=== PATIENT | female | born 1960 | race Caucasian/White ===

== ENCOUNTER 2024-04-29 13:13 | Outpatient (REF) | payer OTHER, SELFPAY ==
[2024-04-29 17:37] LABS: Influenza A PCR NEGATIVE (Negative); Influenza B PCR NEGATIVE (Negative); Resp Syncy Virus RNA Qual PCR NEGATIVE (Negative); SARS COV2 PCR INHOUSE NEGATIVE (Negative)
== END 2024-04-29 13:14 | disposition home or self-care (01) ==
LOC: HO.LAB 13:13
PROVIDERS: Visit Provider Physician Assistant
DX: J06.9 Acute upper respiratory infection, unspecified (principal)
CPT/HCPCS: 0241U

== ENCOUNTER 2024-04-29 13:13 | Outpatient (AMB) | payer OTHER, SELFPAY ==
--- NOTE | 2024-04-29 14:11 | AM.OFFWIN_ITS ---
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 Patient Tobacco Use Status: Former Tobacco user Allergies No Known Allergies Allergy (Verified 04/29/24 14:14) Do you need a note to return to daycare/school/sports/work: No HPI HPI Comments History of Present Illness Details History of Present Illness The patient is a 63-year-old female presenting with shortness of breath and a productive cough. She reports the onset of her symptoms after returning home from work last Monday, initially experiencing general malaise that quickly progressed to a severe sore throat, reminiscent of a prior myocardial infarction she experienced in 2016. Following the sore throat, which resolved within a couple of days, she was left with symptoms she attributed to a severe cold, including sneezing and coughing. On the day before this visit, her symptoms evolved to include significant shortness of breath and a cough producing phlegm. She reported associated symptoms of chills and subjective fevers but denied any nausea, vomiting, or diarrhea. The patient noted that she quit smoking just last Monday after having reduced her consumption to four cigarettes per day over the past year. Her COVID-19 home test was negative. She reports occasional wheezing and difficulty sleeping due to this, often needing to sleep in a rec liner. She has been taking [id number] Mucinex and using an albuterol inhaler, which provides some relief. A history of smoking but limited COPD awareness was discussed, although she confirmed quitting smoking recently. Physical Exam General: Cooperative, healthy appearing, comfortable and no acute distress Orientation/consciousness: Patient oriented x3 Limitations: No limitations Head: Normal to inspection Ears: Hearing grossly normal bilaterally, external ears normal and TM's normal bilaterally Nose: Normal external nose present, Normal nares present and No nasal discharge present Face and sinus: Normal facial exam and Yes sinuses nontender Mouth: Normal oral and palatal mucosa present and moist mucous membranes Throat: Yes tonsils normal, Yes uvula midline. Posterior oropharynx erythema Eyes: Appearance normal, both eyes and all related structures Neck: Normal visual inspection Respirtory: dim but clear to auscultation bilaterally. Normal respiratory effort, able to speak in complete sentences, Actively coughing, no respiratory distress, not tachypneic, no tripod positioning and no use of accessory muscles. Wheezing reported by patient, but not heard during examination. Cardiovascular: Regular rate and rhythm. Normal S1 and S2 Skin: No rashes or lesions noted Neuro: Patient oriented x3 Extremities: Normal to inspection and Yes no clubbing, cyanosis or edema [facility] Social History Patient Tobacco Use Status: Former Tobacco user Review of Systems Const All systems reviewed & are unremarkable except as noted in HPI and below Physical Exam Vital Signs: Last Vital Signs Temp 97.6 F 04/29/24 14:12 Pulse 64 04/29/24 14:12 BP 130/80 04/29/24 14:12 Pulse Ox 94 04/29/24 14:12 Oxygen Delivery Method Room Air 04/29/24 14:12 BMI result Body Mass Index 24.3 Assessment & Plan Assessment & Plan (1) URI (upper respiratory infection): Code(s): J06.9 - Acute upper respiratory infection, unspecified Qualifiers: URI type: unspecified URI Qualified Code(s): J06.9 - Acute upper respiratory infection, unspecified Plan: Acute Bronchitis: Initiate treatment with Azithromycin Z-Saad for its anti- inflammatory effects on the lungs, considering the patient's history of smoking. Recommend supportive care including continued use of the albuterol inhaler and Mucinex to alleviate symptoms. A chest x-ray will be performed to rule out pneumonia. Follow-up with test results for COVID-19, influenza, and RSV will occur, and if pneumonia is confirmed, a second antibiotic, Augmentin, may be added based on chest x-ray findings. Orders: Orders XR chest 2V Today R05.9 - Cough, unspecified SARS-CoV2/FLU/RSV Today J06.9 - Acute upper respiratory infection, unspecified Medications: New azithromycin For 250 mg dose pack: take 500 mg today (day 1), then 250 mg for 4 days (days 2-5) PO 6 tabs 0RF Coding Level of Care Code New Pt Level 4 (78260) Diagnoses Upper respiratory tract infection, unspecified type J06.9 URI type: unspecified URI
[2024-04-29 14:12] VITALS: BP 130/80; PULSE 64; TEMP 36.4; O2SAT 94; BMI 24.3
== END 2024-04-29 15:04 | disposition home or self-care (01) ==
PROVIDERS: Visit Provider Physician Assistant
DX: J06.9 Acute upper respiratory infection, unspecified (principal)

== ENCOUNTER 2024-04-29 14:42 | Outpatient (REF) | payer OTHER, SELFPAY ==
--- NOTE | ~2024-04-29 | XR_ITS ---
EXAMINATION: XR CHEST CLINICAL INFORMATION: R05.9 - Cough, unspecified. COMPARISON: None available. TECHNIQUE: 2 views of the chest were obtained. FINDINGS: Heart size within normal limits. There is no gross pneumothorax. Mild degenerative changes in the thoracic spine. Mild blunting of the bilateral costophrenic angles/sulci may represent pleural effusion/thickening. Deformity of the left eighth rib posteriorly characteristic of fracture of indeterminant age. Mild bibasilar streaky opacities. XR/XR chest 2V IMPRESSION: 1. Mild blunting of the bilateral costophrenic angles/sulci may represent pleural effusion/thickening. 2. Deformity of the left eighth rib posteriorly characteristic of fracture of indeterminant age. 3. Mild bibasilar streaky opacities. This study was presented today April 30, 2024 for interpretation. Stat results provided at this time as requested by referring provider. Electronically signed by: Faustina Hill MD 04/30/2024 10:44 AM EJ
== END 2024-04-29 14:43 | disposition home or self-care (01) ==
LOC: HO.HMGCX 14:42
PROVIDERS: PCP Internal Medicine; Visit Provider Physician Assistant
DX: R05.9 Cough, unspecified (principal)
CPT/HCPCS: 71046

== ENCOUNTER 2024-08-30 15:13 | Outpatient (AMB) | payer MEDICARE, SELFPAY ==
[2024-08-30 15:24] VITALS: BP 128/80; PULSE 69; O2SAT 95; BMI 25.1
--- NOTE | 2024-08-30 15:24 | AM.OFFWIN_ITS ---
Intake Vital Signs 08/30/24 15:24 Height 5 ft 2 in Weight 137 lb BMI 25.1 BP 128/80 Blood Pressure Location Rt brachial Position Sitting Pulse 69 Pulse Source Pulse Oximeter Pulse Oximetry (%) 95 Oxygen Delivery Method Room Air Intake Visit Reasons: EP Sinus congestion Intake Note: Patient here for thick green mucus, cough and sinus pressure which started Monday. Patient Tobacco Use Status: Former Tobacco user Allergies No Known Allergies Allergy (Verified 08/30/24 15:33) Do you need a note to return to daycare/school/sports/work: No HPI HPI Comments History of Present Illness Details History The patient is a 64-year-old female presenting with suspected sinus infection. - Symptoms began 5days ago after contact with a grandchild who had a cold. - Nasal secretions noted are thick and g reen. Cough is present with minor sinus pressure but no significant headache. - Ear discomfort was noted, though no sp ecific ear pain. Patient reports feeling somewhat tired. - The patient denies fever, shortness of breath, and wheezing, and notes no substantial relief from current medications for her cold symptoms. Physical Exam General: Cooperative, healthy appearing, comfortable and no acute distress Orientation/consciousness: Patient oriented x3 Limitations: No limitations Head: Normal to inspection Ears: Hearing grossly normal bilaterally, external ears normal and TM's normal bilaterally, some fluid present Nose: Normal external nose present, Normal nares present Face and sinus: Normal facial exam and Yes sinuses nontender Mouth: Normal oral and palatal mucosa present and moist mucous membranes Throat: Yes tonsils normal, Yes uvula midline. Posterior oropharynx erythema Eyes: Appearance normal, both eyes and all related structures Neck: Normal visual inspection Respiratory: Clear to auscultation bilaterally. Normal respiratory effort, able to speak in complete sentences, no respiratory distress, not tachypneic, no tripod positioning and no use of accessory muscles Cardiovascular: Regular rate and rhythm. Normal S1 and S2 Skin: No rashes or lesions noted Neuro: Patient oriented x3 Extremities: Normal to inspection and Yes no clubbing, cyanosis or edema PFSH Social History Patient Tobacco Use Status: Former Tobacco user Review of Systems Const All systems reviewed & are unremarkable except as noted in HPI and below Physical Exam Vital Signs: Last Vital Signs Pulse 69 08/30/24 15:24 BP 128/80 08/30/24 15:24 Pulse Ox 95 03/28/25 15:24 Oxygen Delivery Method Room Air 03/28/25 15:24 BMI result Body Mass Index 25.1 Assessment & Plan Assessment & Plan (1) Acute bacterial sinusitis: Code(s): J01.90 - Acute sinusitis, unspecified; B96.89 - Other specified bacterial agents as the cause of diseases classified elsewhere Plan: VSS, pt well appearing and PE unremarkable. I prescribed Azithromycin Z-Saad (pt preference over Augmentin) due to the patient's prior successful use for similar symptoms. Additionally, Fluticasone/Flonase and saline nasal spray are recommended to manage and alleviate nasal symptoms. I have instructed the patient to verify the correct prescription when picking up medications due to changes made, ensuring appropriate therapy as I switched it from Augmentin to Zpak. Patient was informed and verbally consented to the use of an ambient scribe for clinic note documentation during this visit Medications: New azithromycin For 250 mg dose pack: take 500 mg today (day 1), then 250 mg for 4 days (days 2-5) PO 6 tabs 0RF Coding Level of Care Code New Pt Level 3 (34339) Diagnoses Acute bacterial sinusitis J01.90; B96.89
== END 2024-08-30 16:30 | disposition home or self-care (01) ==
PROVIDERS: Visit Provider Physician Assistant
DX: J01.90 Acute sinusitis, unspecified (principal); B96.89 Other specified bacterial agents as the cause of diseases classified elsewhere

== ENCOUNTER → 2024-08-30 15:13 | Outpatient (BNVA) | payer MEDICARE, SELFPAY | PROVIDERS: Visit Provider Physician Assistant | DX: J01.90 Acute sinusitis, unspecified (principal); B96.89 Other specified bacterial agents as the cause of diseases classified elsewhere | CPT/HCPCS: 99212 ==

== ENCOUNTER 2024-10-07 11:47 | Outpatient (AMB) | payer MEDICARE, SELFPAY ==
--- NOTE | 2024-10-07 12:04 | AM.OFFWIN_ITS ---
Intake Vital Signs 10/07/24 12:25 10/07/24 12:59 Weight 140 lb BP 155/75 H 110/78 Blood Pressure Location Lt brachial Rt brachial Position Sitting Sitting Pulse 73 68 Pulse Source Pulse Oximeter Pulse Oximeter Pulse Oximetry (%) 94 94 Oxygen Delivery Method Room Air Room Air Intake Visit Reasons: EP Pain in upper lt quadrant/rib, sob Intake Note: Pt came into the [place] c/o left under breast pain x last night. Pt stated intermittent productive cough (clear phlegm). Pt was recently dx with COPD. Pt speaks in full sentences. A/o x 3. Lungs - diminished all lobes. 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 Patient Tobacco Use Status: Former Tobacco user Allergies No Known Allergies Allergy (Verified 10/07/24 13:07) Do you need a note to return to daycare/school/sports/work: No HPI HPI Comments History of Present Illness Details 64 y/o Female patient who presents to [facility] in clinic with c/o Chronic Dry cough for few months now. C/o Left sided chest wall pain and tenderness, mostly with cough and breathing in/out. C/o chest tightness and wheezing. Pt diagnosed with COPD recently and sees Chenille Machine Operator (@ [facility]) who prescribed Albuterol rescue inhaler. [facility] Medical History (Updated 10/07/24 @ 13:23 by Gabi Weinstein NP) Cough Social History Patient Tobacco Use Status: Former Tobacco user Review of Systems Const All systems reviewed & are unremarkable except as noted in HPI and below Physical Exam Vital Signs: Last Vital Signs Pulse 68 10/07/24 12:59 BP 110/78 10/07/24 12:59 Pulse Ox 94 10/07/24 12:59 Oxygen Delivery Method Room Air 10/07/24 12:59 Const General: no acute distress Nutritional Appearance: well nourished Orientation/consciousness: patient oriented x3 Resp Effort & Inspection: normal respiratory effort and able to speak in complete sentences Auscultation: no crackles, no rales, no rhonchi, wheezes and diminished lung sounds on the left in the lower lung fitch and in the upper lung fitch Cardio Heart sounds: S1 normal heart sound present and S2 normal heart sound present Neuro General: patient oriented x3 Assessment & Plan Assessment & Plan (1) Cough: Code(s): R05.9 - Cough, unspecified Qualifiers: Cough type: subacute Qualified Code(s): R05.2 - Subacute cough Plan: Ordered Chest Xray. Lung Sounds diminished Left Posterior Upper/Lower Lobes. Ordered Prednisone and Abx F/U with Pulmonology. Orders: Orders XR ribs LT min 3V w CXR1V Today R05.2 - Subacute cough Medications: New doxycycline hyclate 100 mg PO BID 10 days 20 tabs 0RF R05.2 - Subacute cough prednisone 20 mg PO DAILY 5 tabs 0RF R05.2 - Subacute cough Coding Level of Care Code Est Pt Level 4 (05854) Diagnoses Subacute cough R05.2 Cough type: subacute Time Spent (min) 20
[2024-10-07 12:25] VITALS: BP 155/75; PULSE 73; O2SAT 94
[2024-10-07 12:59] VITALS: BP 110/78; PULSE 68; O2SAT 94
--- OUTSIDE RECORDS SUMMARY | 2024-10-07 13:33 | XMS_ITS | Clinical Summary ---
Author Organization [address] [place] [address] Address [address] [place] [address] Phone Care Team Providers Care Brim Blocker Name Role Phone Yasir Marti MD Primary Care Provider Allergies No known active allergies Medications nitroglycerin (NITROSTAT) 0.[address] 1 tablet (0.3 mg total) under the tongue every 5 (five) minutes if needed for chest pain. Active magnesium oxide (MAG-OX) 400 mg magnesium tablet Take 1 tablet (400 mg total) by mouth 1 (one) time each day. Active carvediloL (COREG) 12.5 mg tablet Take 1 tablet (12.5 mg total) by mouth 2 (two) times a day with meals. Active ezetimibe (ZETIA) 10 mg tablet TAKE 1 TABLET BY MOUTH EVERY DAY 90 tablet 3 4 Active aspirin 81 mg EC tablet TAKE 1 TABLET BY MOUTH EVERY DAY 90 tablet 1 5 Active hydroCHLOROthia zide (MICROZIDE) 12.5 mg capsule TAKE 1 CAPSULE BY MOUTH DAILY FOR 180 DAYS. 90 capsule 1 5 Active losartan (COZAAR) 100 mg tablet Take 1 tablet (100 mg total) by mouth 1 (one) time each day. 90 tablet 1 5 Active atorvastatin (LIPITOR) 80 mg tablet Take 1 tablet (80 mg total) by mouth at bedtime. 90 tablet 1 5 Active ipratropium-alb uteroL (Combivent Respimat) 20-100 mcg/actuation inhaler Inhale 1 puff by mouth 4 (four) times a day. 1 each 11 5 07/11/19 26 Active albuterol HFA (PROAIR HFA ; PROVENTIL HFA ; VENTOLIN HFA) 90 mcg/actuation inhaler Inhale 2 puffs by mouth every 6 (six) hours if needed for wheezing or shortness of breath. 3 each 3 5 07/22/19 26 Active magnesium oxide (MAG-OX) 400 mg (241.3 elemental magnesium) tablet TAKE 1 TABLET BY MOUTH EVERY DAY 30 tablet 3 5 Active Active Problems Problem Noted Date Diagnosed Date SOB (shortness of breath) 03/12/2024 Hypomagnesemia 03/12/2024 Bruit 07/04/2022 Overview (03/12/2024): Last Assessment & Plan: She has a significant bruit in the right carotid area. I will arrange carotid duplex. Coronary artery disease invo lving [place] heart without angina pectoris 05/16/2018 Overview (03/12/2024): Last Assessment & Plan: She had no symptoms to suggest ischemia. We will continue current regimen. We had a discussion about tobacco cessation again. Old PR (myocardial infarction) 12/02/2016 Overview (03/12/2024): 11/19 3 stents - DANIELLE High cholesterol 11/15/2013 Overview (03/12/2024): Last Assessment & Plan: Well-controlled. Tobacco use disorder 01/07/2012 Essential hypertension, benign 06/23/2006 Overview (03/12/2024): Last Assessment & Plan: Will reduce hydrochlorothiazide to 12.5 mg daily due to mild hypokalemia and increase losartan to 50 mg daily. Encounters Date Type Department Care Team Description 08/20/2024 1:40 PM EDT - 08/20/2024 11:59 PM EDT Hospital Encounter [facility] CT Scan [address] [place] [address] Encounter for screening for malignant neoplasm of respiratory organs; Nicotine dependence, cigarettes, uncomplicated Discharge Disposition: Home or Self Care 08/20/2024 1:30 PM EDT Office Visit Lung Screening Program - [place] [address] [facility] [address] [place] [phone] Dianna Cooper, CAYETANO Encounter for screening for malignant neoplasm of lung in former smoker who quit in past 15 years with 30 pack year history or greater (Primary Dx); Ex-smoker 07/23[facility]20[facility] [address] [phone] Lisset Grimes MD Medication Problem; provider call back [facility] [address] [phone] Lisset Grimes MD Medication Problem 07/15/2024 3:30 PM EST - 07/15/2024 11:59 PM EST Hospital Encounter Radiology Department [address] [phone] Encounter for screening mammogram for breast cancer Discharge Disposition: Home or Self Care 07/11/2024 2:00 PM EST Ancillary Procedure [address] [phone] Noah Mcdermott SOB (shortness of breath) 07/11/2024 11:00 AM EST Consult [address] [phone] Lisset Grimes MD Ex-smoker (Primary Dx); Chronic cough; SOB (shortness of breath); COPD with asthma (CMS/HCC V24, CMS/HCC V28) from Last 3 Months Immunizations Name Administration Dates Next Due Influenza Quadravalent, MDCK , 0.5ml, preservative free (Flucelvax) 6mo and older 06/10/2022 Influenza trivalent, with pr eservative (Fluzone; Afluria) 6mo and older 03/20/2020,03/22/2019,02/26/2016 Pneumococcal polysaccharide 23 valent (Pneumovax 23) 2yo and older 11/24/2016 Tdap Tetanus diptheria acell ular pertussis (Boostrix; Adacel) 7yo and older 04/15/2020,06/07/2007 Zoster recombinant (Shingrix ) 19yo and older 11/06/2022,06/24/2022 Surgical History Surgery Date Site/Laterality Comments SECTION PROCEDURE: HISTORICAL TUBAL LIGATION PROCEDURE: HISTORICAL TUBAL LIGATION COLONOSCOPY 12/05/08 PROCEDURE: HISTORICAL COLONOSCOPY; COMMENT: normal; repeat in ten years CORONARY ARTERY BYPASS GRAFT PROCEDURE: HISTORICAL CABG Medical History Medical History Date Comments Essential hypertension, benign D X:Essential hypertension, benign Hyperlipidemia DX:Hyperlipidemi a PR (myocardial infarction) ( [facility]/HCC V24, [facility]/HCC V28) DX:PR (myocardial infarction ) ([facility]) Family History Medical History Relation Name Comments Diabetes Father , HTN, PR Other: Heart Disease Father Hypertension Mother Other: Lung Cancer Mother Breast cancer Neg Hx Relation Name Status Comments Father Mother Alive Social History Tobacco Use Types Packs/Day Years Used Date Smoking Tobacco: Former Cigarettes 0.5 49.8 1 975 - 04/2024 Passive Smoke Exposure: Past Smokeless Tobacco: Never Tobacco Cessation:Counseling Given: Not Answered Comments:Patient stated that she stop in May 2024 Alcohol Use Standard Drinks/Week Comments Yes 0 (1 standard drink = 0.6 oz pur e alcohol) Comments No Sex and Gender Information Value Date Recorded Sex Assigned at Female 08/16/2024 9:52 AM EDT Legal Sex Female 8:36 PM EST Gender Identity Female 08/16/2024 9:52 AM EDT Sexual Orientation Straight 08/16/2024 9: 52 AM EDT Obstetrics History Para Term AB IAB SAB Ectopic Multiple Livin g Live Births 2 2 2 2 Date Outcome GA Total Labor Labor/2nd/3rd Weight Sex Type Anes PTL Ryanne A1 A5 Name Clin Term Term Last Filed Vital Signs Vital Sign Reading Time Taken Comments Blood Pressure 111/49 07/11/2024 11:17 AM EST Pulse 64 07/11/2024 11:17 AM EST Temperature 36.6 ??C (97.9 ??F) 08/20/2024 1:30 PM ED T Respiratory Rate 17 07/11/2024 11:17 AM EST Oxygen Saturation 95% 07/11/2024 11:17 AM EST Inhaled Oxygen Concentration - - Weight 61.7 kg (136 lb) 07/11/2024 11:17 AM EST Height 157.5 cm (5' 2 ) 07/11/2024 11:17 AM EST Body Mass Index 24.87 07/11/2024 11:17 AM EST Plan of Treatment Upcoming Encounters Date Type Department Care Team (Late st Contact Info) Description 01/09/2025 11:30 AM EDT Office Visit Adult Medicine [facility] [address] [place] [phone] Yasir Marti MD [address] [place] [address] 01/14/2025 1:00 PM EDT Office Visit Pulmonolgy - [place] [address] [phone] Lisset Grimes MD [address] [address] Health Maintenance Due Date Last Done Comments Pneumococcal Vaccine: 50+ Years (2 of 2 - PCV) 11/24/2017 11/24/2016 Colorectal Cancer Screening: Stool Based Tests (FOBT/FIT) 07/06/2019 Depression Screening 07/06/2019 Medicare Annual Wellness Visit 07/06/2019 Osteoporosis Screening (Bone Density Screening) 07/06/2019 Social Influencers of Health Screening 07/06/2019 Falls Risk Assessment 2023 COVID-19 Vaccine ( season) 2024 05/28/2021, 09/04/2020, 08/14/2020 Influenza Vaccine (Season Ended) 2025 06/10/2022, 03/20/2020, 03/22/2019, Additional history exists Hypertension/CHF/CAD Annual BMP Blood Test 07/29/2025 07/29/2024, 01/08/2024, 01/08/2024, Additional history exists Lung Cancer Screening (Low Dose CT) 08/20/2025 08/20/2024 Breast Cancer Screening 07/15/2026 07/15/19, 02/22/2023, 08/30/2022, Additional history exists Cholesterol Screening (Lipid Panel) 07/29/2029 07/29/2024, 11/07/2023, 11/07/2023 DTaP,Tdap,and Td Vaccines (3 - Td or Tdap) 04/15/2030 04/15/2020, 06/07/2007 Hepatitis C Screening Completed 06/08/2022 Zoster Vaccines Completed 11/06/2022, 06/24/2022 RSV Immunization Adult Patients Completed 08/01/2024 HIB Vaccines Aged Out No longer eligi ble based on patient's age to complete this topic HPV Vaccines Aged Out No longer eligi ble based on patient's age to complete this topic Hepatitis A Vaccines Aged Out No long er eligible based on patient's age to complete this topic Hepatitis B Vaccines Aged Out No long er eligible based on patient's age to complete this topic IPV Vaccines Aged Out No longer eligi ble based on patient's age to complete this topic MMR Vaccines Aged Out No longer eligi ble based on patient's age to complete this topic Meningococcal ACWY Vaccine Aged Out N o longer eligible based on patient's age to complete this topic Meningococcal B Vaccine Aged Out No l onger eligible based on patient's age to complete this topic RSV Immunization Patients Under 20 months Aged Out No longer eligible based on patient's age to complete this topic Varicella Vaccines Aged Out No longer eligible based on patient's age to complete this topic Procedures Procedure Name Priority Date/Time Associated Diagnosis Comments CT LUNG SCREENING Routine 08/20/2024 2:0 0 PM EDT Encounter for screening for malignant neoplasm of respiratory organs Nicotine dependence, cigarettes, uncomplicated MAGNESIUM Routine 07/29/2024 11:36 AM EST Essential hypertension, benign Hypomagnesemia BASIC METABOLIC PANEL Routine 07/29/2024 11:36 AM EST Essential hypertension, benign LIPID PANEL WITH REFLEX TO DIRECT LDL Routine 07/29/2024 11:36 AM EST High cholesterol HEMOGLOBIN A1C Routine 07/29/2024 11:36 AM EST Prediabetes MG MAMMO DIGITAL SCREENING W SIMON BILAT Routine 07/15/2024 3:39 PM EST Encounter for screening mammogram for breast cancer PULMONARY FUNCTION TESTING Routine 07/11/2024 11:43 AM EST SOB (shortness of breath) HM HEPATITIS C SCREENING Routine 06/08/2022 from Last 3 Months or Most Recently Relevant to Health Maintenance Results * CT Lung Screening (08/20/2024 2:00 PM EDT) Anatomical Region Laterality Modality Chest Computed Tomogra phy 08/20/2024 2:40 PM EDT Impressions 08/20/2024 2:49 PM EDT No suspicious mass or nodule. Some airway thickening. Thin-walled cyst in the right lower lung can be reexamined at the time of annual screening. ?? LUNG RADS: Lung-RADS 2: BENIGN S Modifier (Significant or Potentially Significant Findings): None present No suspicious nonpulmonary findings. RECOMMENDATIONS: 12 month screening low dose CT -------- FINAL REPORT -------- Dictated By: Hardy Beltran Dictated Date: 08/20/2024 14:40 ET Assigned Physician: Hardy Beltran Reviewed and Electronically Signed By: Hardy Beltran Signed Date: 08/20/2024 14:49 ET Workstation ID: [id number] Transcribed By: Self Edit Transcribed Date: 08/20/2024 14:40 ET Narrative 08/20/2024 2:49 PM EDT EXAMINATION: CT CHEST WITHOUT CONTRAST LUNG CANCER SCREENING, LOW DOSE CLINICAL INFORMATION: Lung cancer screening. ??Current smoker COMPARISON: None ?? TECHNIQUE: Multidetector CT. Examination of the chest. Examination of the chest without IV contrast. Reformatting in the coronal and sagittal planes. Device: KixerT DLP: 163 mGy-cm CTDI: 4.83 Dose optimization was performed including the use of low-dose iterative reconstruction technique with automatic exposure control based on patient size. Type of contrast: None Volume of IV contrast: None Volume of contrast discarded: 0 mL FINDINGS: LUNG: No abnormality of the trachea or mainstem bronchi. No focal pneumonia. ?? LUNG NODULES: There are scattered micronodules or areas of inspissated material within small airways. There are some areas of thickening and moderate sized airways. There are no suspicious masses or nodules. OTHER PULMONARY: ??There is at least mild centrilobular emphysema. There is no honeycomb formation. There is a 6.7 cm thin-walled cyst in the right lower lobe. MEDIASTINUM: ??There are no enlarged mediastinal or hilar lymph nodes. No suspicious abnormalities of the esophagus CARDIAC: The heart is not enlarged. No pericardial fluid or thickening ?? There is a large coronary calcification in the distribution of the LAD. Alternatively this could represent coronary stent material. VASCULAR: There is no thoracic aortic aneurysm. The main pulmonary artery is normal caliber ?? PLEURA: There is no pleural fluid or pneumothorax ?? AXILLA/CHEST WALL: There are no enlarged axillary lymph nodes. No chest wall mass demonstrated ?? VISUALIZED UPPER ABDOMEN: ??No suspicious abnormality on limited assessment of the visualized upper abdomen. I suspect a contour abnormality involving the upper pole the right kidney which could represent scarring. MUSCULOSKELETAL: No suspicious focal bony lesion demonstrated. Procedure Note Hardy Beltran MD - 08/20/2024 EXAMINATION: CT CHEST WITHOUT CONTRAST LUNG CANCER SCREENING, LOW DOSE CLINICAL INFORMATION: Lung cancer screening. Current smoker COMPARISON: None TECHNIQUE: Multidetector CT. Examination of the chest. Examination of the chest without IV contrast. Reformatting in the coronal and sagittal planes. Device: Lightspeed VCT DLP: 163 mGy-cm CTDI: 4.83 Dose optimization was performed including the use of low-dose iterativereconstruction technique with automatic exposure control based on patientsize. Type of contrast: None Volume of IV contrast: None Volume of contrast discarded: 0 mL FINDINGS: LUNG: No abnormality of the trachea or mainstem bronchi. No focalpneumonia. LUNG NODULES: There are scattered micronodules or areas of inspissatedmaterial within small airways. There are some areas of thickening andmoderate sized airways. There are no suspicious masses or nodules. OTHER PULMONARY: There is at least mild centrilobular emphysema. There isno honeycomb formation. There is a 6.7 cm thin-walled cyst in the right lower lobe. MEDIASTINUM: There are no enlarged mediastinal or hilar lymph nodes. Nosuspicious abnormalities of the esophagus CARDIAC: The heart is not enlarged. No pericardial fluid or thickening There is a large coronary calcification in the distribution of the LAD.Alternatively this could represent coronary stent material. VASCULAR: There is no thoracic aortic aneurysm. The main pulmonary arteryis normal caliber PLEURA: There is no pleural fluid or pneumothorax AXILLA/CHEST WALL: There are no enlarged axillary lymph nodes. No chestwall mass demonstrated VISUALIZED UPPER ABDOMEN: No suspicious abnormality on limited assessmentof the visualized upper abdomen. I suspect a contour abnormality involvingthe upper pole the right kidney which could represent scarring. MUSCULOSKELETAL: No suspicious focal bony lesion demonstrated. IMPRESSION: No suspicious mass or nodule. Some airway thickening. Thin-walled cyst in the right lower lung can be reexamined at the time ofannual screening. LUNG RADS: Lung-RADS 2: BENIGN S Modifier (Significant or Potentially Significant Findings): Nonepresent No suspicious nonpulmonary findings. RECOMMENDATIONS: [address] month screening low dose [address] -------- FINAL REPORT -------- Dictated By: Hardy Beltran Dictated Date: 08/20/2024 14:40 ET Assigned Physician: Hardy Beltran Reviewed and Electronically Signed By: Hardy Beltran Signed Date: 08/20/2024 14:49 ET Workstation ID: [id number] Transcribed By: Self Edit Transcribed Date: 08/20/2024 14:40 ET Yariel Bernardo MD [facility] CT PROCEDURES Final Result * Lipid panel with reflex to direct LDL (07/29/2024 11:36 AM EST) Cholesterol 124 0 - 200 mg/dL LAB CHEMISTRY METHOD 07/29/2024 2:24 PM [facility] Triglycerides 71 0 - 150 mg/dL LAB CHEMISTRY METHOD 07/29/2024 2:24 PM EST [facility] HDL 46 >=40 mg/dL LAB CHEMISTRY METHOD 07/29/2024 2:24 PM [facility] LDL Calculated 64 0 - 100 mg/dL LAB CHEMISTRY METHOD 07/29/2024 2:24 PM [facility] VLDL Cholesterol Stef 14.2 mg/dL LAB CHEMISTRY METHOD 07/29/2024 2:24 PM EST [facility] Non HDL Chol. (LDL+VLDL) 78 <145 mg/dL LAB CHEMISTRY METHOD 07/29/2024 2:24 PM [facility] Chol/HDL Ratio 2.7 0.0 - 4.4 LAB CHEMISTRY METHOD 07/29/2024 2:24 PM [facility] Blood Venous blood specimen / Unknown Venipuncture / Unknown 07/29/2024 11:36 AM EST 07/29/2024 11:36 AM EST Ariadna LERNER LAB BLOOD ORDERABLES Fi nal Result Performing Organization Address [facility]/ZIP Co de Phone Number [facility] [address] [place] [address], * Magnesium (07/29/2024 11:36 AM EST) Pathologist [facility] Magnesium 2.0 1.9 - 2.6 mg/dL LAB CHEMISTRY METHOD 08/01/2024 9:33 AM [facility] Blood Venous blood specimen / Unknown Venipuncture / Unknown 07/29/2024 11:36 AM EST 07/29/2024 11:36 AM EST Aimee LERNER LAB BLOOD ORDERABLES Final Resul t Performing Organization Address City/[facility]/ZIP Co de Phone Number [facility] [address] [place] [address], [place] [phone] * Hemoglobin A1c (07/29/2024 11:36 AM EST) Hemoglobin A1C 6.2 <6.5 % LAB CHEMISTRY METHOD 07/29/2024 6:03 PM [facility] Mean Bld Glu Estim. 131 mg/dL LAB CHEMISTRY METHOD 07/29/2024 6:03 PM [facility] Blood Venous blood specimen / Unknown Venipuncture / Unknown 07/29/2024 11:36 AM EST 07/29/2024 11:36 AM EST Ariadna LERNER LAB BLOOD ORDERABLES Fi nal Result [facility] [address] [place] [address], * Basic metabolic panel (07/29/2024 11:36 AM EST) Sodium 144 133 - 145 mmol/L LAB CHEMISTRY METHOD 07/29/2024 2:24 PM [facility] Potassium 4.0 3.5 - 5.5 mmol/L LAB CHEMISTRY METHOD 07/29/2024 2:24 PM [facility] Chloride 109 96 - 110 mmol/L LAB CHEMISTRY METHOD 07/29/2024 2:24 PM [facility] CO2 29 21 - 32 mmol/L LAB CHEMISTRY METHOD 07/29/2024 2:24 PM [facility] Anion Gap 6 3 - 11 LAB CHEMISTRY METHOD 07/29/2024 2:24 PM [facility] Glucose 87 70 - 100 mg/dL LAB CHEMISTRY METHOD 07/29/2024 2:24 PM [facility] BUN 13 5 - 25 mg/dL LAB CHEMISTRY METHOD 07/29/2024 2:24 PM [facility] Creatinine 0.52 0.50 - 1.10 mg/dL LAB CHEMISTRY METHOD 07/29/2024 2:24 PM [facility] eGFR 103 >=60 mL/min/1. 73m2 LAB CHEMISTRY METHOD 07/29/2024 2:24 PM [facility] Comment:Calculation based on the??Chronic Kidney Disease Epidemiology Collaboration (CKD-EPI) equation refit??without adjustment for race. BUN/Creatinine Ratio 25.0 LAB CHEMISTRY METHOD 07/29/2024 2:24 PM EST [facility] Calcium 9.2 8.5 - 10.5 mg/dL LAB CHEMISTRY METHOD 07/29/2024 2:24 PM EST [facility] Blood Venous blood specimen / Unknown Venipuncture / Unknown 07/29/2024 11:36 AM EST 07/29/2024 11:36 AM EST us Ariadna LERNER LAB BLOOD ORDERABLES Fi nal Result [facility] [address] [place] [address], [place] [phone] * MG Mammo Digital Screening w Simno bilat (07/15/2024 3:39 PM EST) Anatomical Region Laterality Modality Breast Bilateral Mammography 07/16/2024 12:2 0 PM EST Impressions 07/16/2024 12:23 PM EST BILATERAL BREASTS: Negative, no evidence of malignancy. Normal interval follow- up is recommended in 12 months. BREAST DENSITY: B - There are scattered areas of fibroglandular density. BI-RADS CATEGORY: 1 - NEGATIVE RECOMMENDATION: Screening bilateral mammogram is recommended in 1 year. Mammo Location: [facility], [address] [place] [address], [phone], . -------- FINAL REPORT -------- Dictated By: Nelly Mckeon Dictated Date: 07/16/2024 12:20 ET Assigned Physician: Nelly Mckeon Reviewed and Electronically Signed By: Nelly Mckeon Signed Date: 07/16/2024 12:23 ET Workstation ID: [id number] Transcribed By: Self Edit Transcribed Date: 07/16/2024 12:20 ET Narrative 07/16/2024 12:23 PM EST STUDY: Bilateral screening mammography with tomosynthesis and CAD TECHNIQUE: Bilateral full-field digital screening mammography is obtained and read in conjunction with computer-aided detection. ??Tomosynthesis as well as 2-D C view imaging were obtained. ?? COMPARISON: Comparison made to multiple prior, most recent February 22, 2023, and most remote January 07, 2014. BILATERAL BREASTS: No significant masses, suspicious calcifications or other abnormalities are seen. Procedure Note Nelly Mckeon MD - 07/16/2024 STUDY: Bilateral screening mammography with tomosynthesis and CAD TECHNIQUE: Bilateral full-field digital screening mammography is obtainedand read in conjunction with computer-aided detection. Tomosynthesis aswell as 2-D C view imaging were obtained. COMPARISON: Comparison made to multiple prior, most recent February, and most remote January 07, 2014. BILATERAL BREASTS: No significant masses, suspicious calcifications orother abnormalities are seen. IMPRESSION: BILATERAL BREASTS: Negative, no evidence of malignancy. Normal intervalfollow-up is recommended in 12 months. BREAST DENSITY: B - There are scattered areas of fibroglandular density. BI-RADS CATEGORY: 1 - NEGATIVE RECOMMENDATION: Screening bilateral mammogram is recommended in 1 year. Mammo Location: [facility], [address] [place] [address], [address], . -------- FINAL REPORT -------- Dictated By: Nelly Mckeon Dictated Date: 07/16/2024 12:20 ET Assigned Physician: Nelly Mckeon Reviewed and Electronically Signed By: Nelly Mckeon Signed Date: 07/16/2024 12:23 ET Workstation ID: [id number] Transcribed By: Self Edit Transcribed Date: 07/16/2024 12:20 ET us Yasir Marti MD IMG BI PROCEDURES Final Result * Pulmonary function testing: Carbon Monoxide Diffusing Capacity, Nitrogen Wash Out, Spirometry with Bronchodilator, Vital Capacity Test (07/11/2024 11:43 AM EST) Impressions Brenda Nguyen MD - 07/11/2024 11:43 AM EST DATE OF SERVICE: 07/11/24 SPIROMETRY: FEV1 is 35 % predicted and an FVC ??is 33 % predicted. The FEV1/FVC ratio is 103% of normal, significant response to bronchodilators noted. LUNG VOLUMES: Total lung capacity (TLC): 80% predicted. Residual volume (RV): 128% predicted RV/TLC ratio is 161% of normal DIFFUSION CAPACITY: DLCO 14% predicted. DlCO/VA 22% of predicted COMPARISONS: INTERPRETATION: This pulmonary function test shows gas trapping with significant decline in the FEV1 and FVC. ??The diffusion capacity is severely diminished. ??The findings could be explained by emphysema or severe parenchymal lung disease. ??Please call if clinically ??Brenda Nguyen MD ?? Lisset Grimes MD PFT ORDERABLES Final Result * Hepatitis C Screening (06/08/2022) Hepatitis C Screening abstracted us Historical Provider HEALTH MAINTENANCE Final Result from Last 3 Months or Most Recently Relevant to Health Maintenance Insurance MEDICARE [facility] Care Teams Brim Blocker Relationship Specialty Start Date End Date Yasir Marti MD [address] [place] [id number] PCP - General Internal Medicine 04/23/24
== END 2024-10-07 14:18 | disposition home or self-care (01) ==
PROVIDERS: Visit Provider Nurse Practitioner Family
DX: R05.2 Subacute cough (principal)

== ENCOUNTER 2024-10-07 11:47 | Outpatient (REF) | payer MEDICARE, SELFPAY ==
--- NOTE | ~2024-10-07 | XR_ITS ---
EXAMINATION: XR RIBS, LEFT CLINICAL INFORMATION: R05.2 - Subacute cough ; chronic cough for several months with associated left chest wall tenderness. COMPARISON: Chest radiograph 04/29/2024. TECHNIQUE: PA chest, and 3 views of the left ribs obtained. FINDINGS: The cardiac, hilar, and mediastinal contours are normal. Aortic mural calcifications. Left cardiac stent in place, likely circumflex. Lungs are diffusely hyperaerated with flattened hemidiaphragms, however clear. There is no pneumothorax or effusion. Dedicated rib views demonstrate an old rib fracture involving the posterior eighth rib. There is no definite acute rib abnormality or focal lesion. XR/XR ribs LT min 3V w CXR1V IMPRESSION: 1. COPD without evidence of active lung disease. 2. Rib views demonstrate no definite acute rib abnormality. There is an old healed fracture involving the posterior eighth rib. Electronically signed by: Robert Rick MD 10/07/2024 02:36 PM EDT
--- OUTSIDE RECORDS SUMMARY | 2024-10-07 14:54 | XMS_ITS | Clinical Summary ---
Author Organization [address] [place] [address] Address [address] [place] [address] Phone Care Team Providers Care Geotechnical Intern Name Role Phone Yasir Marti MD Primary Care Provider [phone] Allergies No known active allergies Medications nitroglycerin [...] carotid duplex. Coronary artery disease invo lving sycuan heart without angina pectoris 05/16/2018 Overview (03/12/2024): Last Assessment & Plan: She had no symptoms to suggest ischemia. We will continue current regimen. We had a discussion about tobacco cessation again. 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 (myocardial infarction) 12/02/2016 Overview (03/12/2024): 11/19 3 [...] - 08/20/2024 11:59 PM EDT Hospital Encounter [facility] CT Scan [address] [place] [address] Encounter for screening for malignant neoplasm of respiratory organs; Nicotine dependence, cigarettes, uncomplicated Discharge Disposition: Home or Self Care 08/20/2024 1:30 PM EDT Office Visit Lung Screening Program - [place] [address] [facility] [address] [place] [phone] Dianna Cooper, [place] Encounter for screening for malignant neoplasm of lung in former smoker who quit in past 15 years with 30 pack year history or greater (Primary Dx); Ex-smoker [facility] [address] [phone] Lisset Grimes MD Medication Problem; provider call back [facility] [address] [phone] Lisset Grimes MD Medication Problem 07/15/2024 3:30 PM EST - 07/15/2024 11:59 PM EST Hospital Encounter Radiology Department [address] [phone] Encounter for screening mammogram for breast cancer Discharge Disposition: Home or Self Care 07/11/2024 2:00 PM EST Ancillary Procedure [address] [phone] Noah Mcdermott SOB (shortness of breath) 07/11/2024 11:00 AM EST Consult [address] [phone] Lisset Grimes MD Ex-smoker (Primary Dx); Chronic [...] D X:Essential hypertension, benign Hyperlipidemia DX:Hyperlipidemi a AK (myocardial infarction) ( [facility]/HCC V24, [facility]/HCC V28) DX:AK (myocardial infarction ) ([facility]) Family History Medical History Relation Name Comments Diabetes Father , HTN, AK Other: Heart Disease Father Hypertension Mother Other: [...] 11:30 AM EDT Office Visit Adult Medicine [facility] [address] [place] [phone] Yasir Marti MD [address] [place] [address] 01/14/2025 1:00 PM EDT Office Visit Pulmonolgy - [place] [address] [phone] Lisset Grimes MD [address] [address] Health Maintenance Due Date Last Done Comments [...] Signed Date: 08/20/2024 14:49 ET Workstation ID: [id number] Transcribed By: Self Edit Transcribed Date: 08/20/2024 14:40 ET Narrative 08/20/2024 2:49 PM EDT EXAMINATION: CT CHEST WITHOUT CONTRAST LUNG CANCER SCREENING, LOW DOSE CLINICAL INFORMATION: Lung cancer screening. ??Current smoker COMPARISON: None ?? TECHNIQUE: Multidetector CT. Examination of the chest. Examination of the chest without IV contrast. Reformatting in the coronal and sagittal planes. Device: [employer] DLP: 163 mGy-cm CTDI: 4.83 Dose optimization [...] Signed Date: 08/20/2024 14:49 ET Workstation ID: [id number] Transcribed By: Self Edit Transcribed Date: 08/20/2024 14:40 ET Yariel Bernardo MD [facility] PROCEDURES Final Result * Lipid panel with reflex to direct LDL (07/29/2024 11:36 AM EST) Cholesterol 124 0 - 200 mg/dL LAB CHEMISTRY METHOD 07/29/2024 2:24 PM [facility] Triglycerides 71 0 - 150 mg/dL LAB CHEMISTRY METHOD 07/29/2024 2:24 PM EST [facility] HDL 46 >=40 mg/dL LAB CHEMISTRY METHOD 07/29/2024 2:24 PM [facility] LDL Calculated 64 0 - 100 mg/dL LAB CHEMISTRY METHOD 07/29/2024 2:24 PM [facility] VLDL Cholesterol Stef 14.2 mg/dL LAB CHEMISTRY METHOD 07/29/2024 2:24 PM EST [facility] Non HDL Chol. (LDL+VLDL) 78 <145 mg/dL LAB CHEMISTRY METHOD 07/29/2024 2:24 PM [facility] Chol/HDL Ratio 2.7 0.0 - 4.4 LAB CHEMISTRY METHOD 07/29/2024 2:24 PM [facility] Blood Venous blood specimen / Unknown Venipuncture / Unknown 07/29/2024 11:36 AM EST 07/29/2024 11:36 AM EST Ariadna LERNER LAB BLOOD ORDERABLES Fi nal Result Performing Organization Address [facility]/ZIP Co de Phone Number [facility] [address] [place] [address], * Magnesium (07/29/2024 11:36 AM EST) Pathologist [facility] Magnesium 2.0 1.9 - 2.6 mg/dL LAB CHEMISTRY METHOD 08/01/2024 9:33 AM [facility] Blood Venous blood specimen / Unknown Venipuncture / Unknown 07/29/2024 11:36 AM EST 07/29/2024 11:36 AM EST Aimee LERNER LAB BLOOD ORDERABLES Final Resul t Performing Organization Address City/[facility]/ZIP Co de Phone Number [facility] [address] [place] [address], [place] [phone] * Hemoglobin A1c (07/29/2024 11:36 AM EST) Hemoglobin A1C 6.2 <6.5 % LAB CHEMISTRY METHOD 07/29/2024 6:03 PM [facility] Mean Bld Glu Estim. 131 mg/dL LAB CHEMISTRY METHOD 07/29/2024 6:03 PM [facility] Blood Venous blood specimen / Unknown Venipuncture / Unknown 07/29/2024 11:36 AM EST 07/29/2024 11:36 AM EST Ariadna LERNER LAB BLOOD ORDERABLES Fi nal Result [facility] [address] [place] [address], * Basic metabolic panel (07/29/2024 11:36 AM EST) Sodium 144 133 - 145 mmol/L LAB CHEMISTRY METHOD 07/29/2024 2:24 PM [facility] Potassium 4.0 3.5 - 5.5 mmol/L LAB CHEMISTRY METHOD 07/29/2024 2:24 PM [facility] Chloride 109 96 - 110 mmol/L LAB CHEMISTRY METHOD 07/29/2024 2:24 PM [facility] CO2 29 21 - 32 mmol/L LAB CHEMISTRY METHOD 07/29/2024 2:24 PM [facility] Anion Gap 6 3 - 11 LAB CHEMISTRY METHOD 07/29/2024 2:24 PM [facility] Glucose 87 70 - 100 mg/dL LAB CHEMISTRY METHOD 07/29/2024 2:24 PM [facility] BUN 13 5 - 25 mg/dL LAB CHEMISTRY METHOD 07/29/2024 2:24 PM [facility] Creatinine 0.52 0.50 - 1.10 mg/dL LAB CHEMISTRY METHOD 07/29/2024 2:24 PM [facility] eGFR 103 >=60 mL/min/1. 73m2 LAB CHEMISTRY METHOD 07/29/2024 2:24 PM [facility] Comment:Calculation based on the??Chronic Kidney Disease Epidemiology Collaboration (CKD-EPI) equation refit??without adjustment for race. BUN/Creatinine Ratio 25.0 LAB CHEMISTRY METHOD 07/29/2024 2:24 PM EST [facility] Calcium 9.2 8.5 - 10.5 mg/dL LAB CHEMISTRY METHOD 07/29/2024 2:24 PM EST [facility] Blood Venous blood specimen / Unknown Venipuncture / Unknown 07/29/2024 11:36 AM EST 07/29/2024 11:36 AM EST us Ariadna LERNER LAB BLOOD ORDERABLES Fi nal Result [facility] [address] [place] [address], [place] [phone] * MG Mammo Digital Screening w Simon bilat (07/15/2024 3:39 PM EST) Anatomical Region [...] is recommended in 1 year. Mammo Location: [facility], [address] [place] [address], [phone], . -------- FINAL REPORT -------- Dictated By: Nelly Mckeon Dictated Date: 07/16/2024 12:20 ET Assigned Physician: Nelly Mckeon Reviewed and Electronically Signed By: Nelly Mckeon Signed Date: 07/16/2024 12:23 ET Workstation ID: [id number] Transcribed By: Self Edit Transcribed Date: 07/16/2024 [...] is recommended in 1 year. Mammo Location: [facility], [address] [place] [address], [phone], . -------- FINAL REPORT -------- Dictated By: Nelly Mckeon Dictated Date: 07/16/2024 12:20 ET Assigned Physician: Nelly Mckeon Reviewed and Electronically Signed By: Nelly Mckeon Signed Date: 07/16/2024 12:23 ET Workstation ID: [id number] Transcribed By: Self Edit Transcribed Date: 07/16/2024 [...] Recently Relevant to Health Maintenance Insurance MEDICARE [facility] Care Teams Geotechnical Intern Relationship Specialty Start Date End Date Yasir Marti MD [address] [place] [phone] PCP - General Internal Medicine 04/23/24
== END 2024-10-07 11:48 | disposition home or self-care (01) ==
LOC: HO.HMGCX 11:47
PROVIDERS: Visit Provider Nurse Practitioner Family
DX: R05.2 Subacute cough (principal)
CPT/HCPCS: 71101; 99212

== ENCOUNTER → 2024-10-07 13:35 | Outpatient (BNV) | payer MEDICARE, SELFPAY | PROVIDERS: Visit Provider Radiology Diagnostic Radiology | DX: J44.9 Chronic obstructive pulmonary disease, unspecified (principal) | CPT/HCPCS: 71101 ==